=== PATIENT | female | born 2000 | race Caucasian/White ===

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

== ENCOUNTER 2019-02-13 15:12 | Emergency (ER) | payer SELFPAY ==
--- NOTE | 2019-02-13 15:22 | ER Document Report ---
ED Medical Screen (RME) - General Chief Complaint: Arm Injury Stated Complaint: LEFT ARM INJURY Time Seen by Provider: 02/13/19 15:19 Mode of Arrival: Ambulatory Information source: Patient Notes: 18-year-old female presented to ED for a laceration to the left forearm. She states she went to a [employer] last night a friend gave her a pill and told her to take it. She states after she took this pill she does not remember anything else that happened. She states she woke up with a headache feeling like she had clouds in her head and a large laceration to her arm. She does not know how she got either. She is alert and oriented respirations regular and unlabored. Last menstrual period was February 03. Patient states she does vape I have greeted and performed a rapid initial assessment of this patient. A comprehensive ED assessment and evaluation of the patient, analysis of test results and completion of medical decision making process will be conducted by an additional ED providers. - Related Data Allergies/Adverse Reactions: No Known Allergies Allergy (Unverified 12/11/18 18:41) Past Medical History Renal/ Medical History: Denies: Hx Peritoneal Dialysis Psychiatric Medical History: Reports: Hx Depression Physical Exam - Vital signs Vitals: Temp Pulse Resp BP Pulse Ox 98.6 F 84 20 122/78 99 02/13/19 15:16 02/13/19 15:16 02/13/19 15:16 02/13/19 15:16 02/13/19 15:16 Course - Vital Signs Vital signs: Temp Pulse Resp BP Pulse Ox 98.6 F 84 20 122/78 99 02/13/19 15:16 02/13/19 15:16 02/13/19 15:16 02/13/19 15:16 02/13/19 15:16
[2019-02-13 16:11] LABS: AMORPHOUS SEDIMENT,URINE TRACE /HPF; APPEARANCE,URINE SLIGHTLY-CLOUDY; BILIRUBIN,URINE NEGATIVE (NEGATIVE); COLOR,URINE YELLOW; GLUCOSE, URINE NEGATIVE (NEGATIVE); KETONES,URINE NEGATIVE (NEGATIVE); PROTEIN,URINE NEGATIVE (NEGATIVE); URINE SPECIFIC GRAVITY 1.013; UROBILINOGEN,URINE NEGATIVE mg/dL (<2.0)
[2019-02-13 16:25] LABS: URINE AMPHETAMINES SCREEN NEGATIVE; URINE BARBITURATES SCREEN NEGATIVE; URINE BENZODIAZEPINES SCREEN NEGATIVE; URINE COCAINE SCREEN NEGATIVE; URINE MARIJUANA (THC) SCREEN NEGATIVE; URINE METHADONE SCREEN NEGATIVE; URINE PHENCYCLIDINE SCREEN NEGATIVE
[2019-02-13] MEDS ORDERED: KETOROLAC TROMETHAMINE INJ/PF 30 MG/1 ML SDV IM ONE (19:29)
--- NOTE | 2019-02-13 19:32 | ER Document Report ---
ED General - General Chief Complaint: Laceration Stated Complaint: LEFT ARM INJURY Time Seen by Provider: 02/13/19 15:19 Mode of Arrival: Ambulatory - [facility] Notes: Patient is a 18-year-old female no significant past medical history with tetanus reported to be up-to-date within the last 2 years who presents complaining of left posterior forearm laceration by unknown object yesterday. Patient states that she was at a libertarian and was drinking and also took a pill that her friend gave her. Patient states that she does not really remember anything thereafter nor how she obtained her laceration. She is able to move her arm without difficulty otherwise. She has no other concern of pain. Denies drug allergies. She is otherwise feeling well. She does have a mild headache. She has a history of migraines. This is not the worst of her life and did not start as a thunderclap. She is eating and drinking without difficulty. She is urinating normally and having normal bowel movements. Denies any fever, head injury, neck pain, URI, sore throat, chest pain, palpitations, syncope, cough, shortness of breath, wheeze, dyspnea, abdominal pain, nausea/vomiting/diarrhea, urinary retention, dysuria, hematuria, loss of control of bowel or bladder, numbness/tingling, saddle anesthesia, muscle paralysis/weakness, or rash. - Related Data Allergies/Adverse Reactions: No Known Allergies Allergy (Unverified 12/11/18 18:41) Past Medical History - General Information source: Patient - Social History Smoking Status: Current Some Day Smoker Frequency of alcohol use: Social Drug Abuse: None Family History: Reviewed & Not Pertinent Patient has suicidal ideation: No Patient has homicidal ideation: No Renal/ Medical History: Denies: Hx Peritoneal Dialysis Psychiatric Medical History: Reports: Hx Depression Past Surgical History: Reports: Hx Orthopedic Surgery - R Knee Review of Systems - Review of Systems -: Yes All other systems reviewed and negative Physical Exam - Vital signs Vitals: Temp Pulse Resp BP Pulse Ox 98.6 F 84 20 122/78 99 02/13/19 15:16 02/13/19 15:16 02/13/19 15:16 02/13/19 15:16 02/13/19 15:16 - Notes Notes: PHYSICAL EXAMINATION: GENERAL: Well-appearing, well-nourished and in no acute distress. A&Ox4. Answers questions appropriately. HEAD: Atraumatic, normocephalic. EYES: Pupils equal round and reactive to light, extraocular movements intact, sclera anicteric, conjunctiva are normal. ENT: Nares patent and without discharge. oropharynx clear without exudates. No tonsilar hypertrophy or erythema. Moist mucous membranes. NECK: Normal range of motion, supple without lymphadenopathy LUNGS: Breath sounds clear to auscultation bilaterally and equal. No wheezes rales or rhonchi. HEART: Regular rate and rhythm without murmurs, rubs, gallops. ABDOMEN: Soft, nontender, nondistended abdomen. No guarding, no rebound. Normal bowel sounds present. No CVA tenderness bilaterally. Musculoskeletal: Ext's b/l: FROM to passive/active. Strength 5+/5. N/V intact distal. No bony tenderness throughout. Extremities: No cyanosis, clubbing, or edema b/l. Peripheral pulses 2+. Capillary refill less than 3 seconds. NEUROLOGICAL: Cranial nerves grossly intact. Normal speech, normal gait. Normal sensory, motor exams PSYCH: Normal mood, normal affect. SKIN: Left posterior forearm: there is a very superficial narrow linear laceration 6cm in total length noted. No active bleeding. It almost appears as though there was a skin avulsion, but I can still connect the two sides together as it is not gaped that wide. Course - Re-evaluation Re-evalutation: 02/13/19 20:20 Patient is an afebrile, well-hydrated, 18-year-old female who presents to the ED with a laceration to the left posterior forearm. Vitals are acceptable. PE is otherwise unremarkable for any neurovascular compromise, obvious tendon/ligament rupture, obvious fracture/dislocation, septic joint. Patient is nontoxic- appearing and is tolerating p.o. without difficulties. Wound was thoroughly irrigated and cleansed. Wound edges were approximated appropriately utilizing 8 simple interrupted sutures. Wound dressing was placed and wound instructions reviewed. Patient tolerated procedure well without any complications. Tetanus reported to be uptodate. No further labs or imaging warranted. Sutures will need removed in 10 days. Recheck with your PCM in 2-3 days. Consider consult orthopedics if needed. Return to the ED with any worsening/concerning symptoms otherwise as reviewed in discharge. Patient is in agreement. - Vital Signs Vital signs: Temp Pulse Resp BP Pulse Ox 98.6 F 84 20 122/78 99 02/13/19 15:16 02/13/19 15:16 02/13/19 15:16 02/13/19 15:16 02/13/19 15:16 Procedures - Laceration/Wound Repair Left Arm Wound length (cm): 6 Wound's Depth, Shape: Superficial, Linear Laceration pre-procedure: Sterile PPE donned, Sterile drapes applied, Other - chlorhexadine/saline Anesthetic type: 1% Lidocaine Volume Anesthetic (mLs): 6 Wound explored: Clean, No foreign body removed Irrigated w/ Saline (mLs): 250 Wound Debrided: none Wound Repaired With: Sutures Suture Size/Type: 4:0, Nylon Number of Sutures: 8 Layer Closure?: No Post-procedure wound care: Sterile dressing applied Post-procedure NV exam normal: Yes Complications: No Discharge - Discharge Clinical Impression: Laceration of left forearm Qualifiers: Encounter type: initial encounter Qualified Code(s): S51.812A - Laceration without foreign body of left forearm, initial encounter Condition: Stable Disposition: HOME, SELF-CARE Instructions: Soap Cleansing ([facility]), Antibiotic Ointment Protection ([facility]), Laceration Care ([facility]) Additional Instructions: Do not shower or bathe for 24 hours. After 24 hours you may shower but no submersion of the wound under water. Keep the original dressing on the wound for 24 hours unless the drainage soaks through. Change the dressing daily thereafter and keep the knots of the suture material clean from any dried discharge. You may leave the wound open to the air once there is no more discharge. See your PCM in 2-3 days for a recheck. Monitor for any signs of worsening pain or redness, purulent drainage, streaks, and/or fever. Return to the ED if noticing any of the above symptoms or as needed. Take medications as directed. Your sutures will need to be removed in 10 days. Prescriptions: Cephalexin Monohydrate [Keflex 500 mg Capsule] 500 mg PO BID #10 capsule Forms: Smoking Cessation Education Referrals: [facility] [Provider Group] - Follow up as needed
[2019-02-13] MEDS ORDERED: LIDOCAINE 1% INJ-PF (10 MG/ML) 30 ML SDV ONE (20:00)
[2019-02-13 20:46] VITALS: BP 117/80
== END 2019-02-13 20:46 | disposition home or self-care (01) ==
LOC: ER 15:12
PROC: 0HQEXZZ Repair Left Lower Arm Skin, External Approach (ICD-10-PCS; principal; 2019-02-13)
DX: S51.812A Laceration without foreign body of left forearm, initial encounter (principal); R51 Headache; W45.8XXA Other foreign body or object entering through skin, initial encounter
CPT/HCPCS: 99283; 96372; 81001; 80307; 12002; J3490; J1885